=== PATIENT | male | born 1960 | race Caucasian/White ===

== ENCOUNTER 2021-03-19 18:13 | Emergency (ER) | payer BC, MEDICAID, SELFPAY ==
[2021-03-19 18:22] VITALS: BP 139/90; PULSE 72; RESP 16; TEMP 35.8; O2SAT 98; BMI 33.8
--- NOTE | 2021-03-19 18:22 | XRR_ITS ---
PROCEDURE INFORMATION: Exam: XR Chest Exam date and time: 03/19/2021 6:22 PM Age: 60 years old Clinical indication: Shortness of breath; Additional info: SOB TECHNIQUE: Imaging protocol: XR of the chest. Views: 1 view. COMPARISON: No relevant prior studies available. FINDINGS: Tubes, catheters and devices: AICD/pacer device noted in the left chest wall. Lungs: Unremarkable. No consolidation. Pleural spaces: Unremarkable. No pleural effusion. No pneumothorax. Heart/Mediastinum: No cardiomegaly. Moderate-sized hiatal hernia. Bones/joints: Unremarkable. XR/XR chest 1V portable [id number] IMPRESSION: 1. No acute findings. 2. Moderate-sized hiatal hernia.
--- NOTE | 2021-03-19 18:38 | PC.NURSE ---
EKG GIVEN TO DR. SIERRA
--- NOTE | 2021-03-19 18:47 | ECG_ITS ---
[facility] Test Date: 2021-03-19 Pat Name: Adebayo Serra Department: Room: Gender: Male Improvement Coordinator: : 1960 Requested By: Kaity Eaton Order Number: [id number] Kayla MD: Ellie Obrien M.D. Measurements Intervals [place] Rate: 64 P: -3 UT: 178 QRS: 19 QRSD: 128 T: -12 QT: 420 QTc: 435 Interpretive Statements SINUS RHYTHM MINIMAL VOLTAGE CRITERIA FOR LVH, CONSIDER NORMAL VARIANT [MEETS CRITERIA IN ONE OF: R(aVL), S(V1), R(V5), R(V5/V6)+S(V1)] ANTEROLATERAL MYOCARDIAL INFARCTION , OF INDETERMINATE AGE [40+ ms Q WAVE IN I/aVL/V3-V6] No previous ECG available for comparison Electronically Signed On 03-19-2021 20:19:41 FOAM FABRICATOR by Ellie Obrien M.D. [id number]
[2021-03-19 19:06] LABS: SARS Covid-2 Antigen Negative (Negative)
--- NOTE | 2021-03-19 19:48 | ED_ITS ---
HPI - COVID General: Chief Complaint: COVID symptoms Stated Complaint: Covid Symptoms Time Seen by Provider: 03/19/21 19:10 Triage information: Has fever, cough or shortness of breath . No known COVID + exposure last 14 days History of Present Illness: HPI Narrative: Patient states he had a cough, sore throat and drainage last couple days Prior covid testing: no COVID 19 common symptoms: positive non-productive cough, throat pain and nasal congestion; negative fever(s), chills, body aches, headache(s), nausea or vomiting COVID 19 other sytmptoms: negative chest pain Severity: mild Pertinent comorbid conditions: hypertension Treatment prior to arrival: none COVID Results: SARS-CoV-2 Antigen (Rapid) Negative (Negative) 03/19/21 18:42 03/19/21 Review of Systems Const: Denies: fever(s), chills or body aches Eyes: Denies: change in vision or blurry vision ENMT: Reports: throat pain and nasal congestion Card: Denies: chest pain or dyspnea on exertion Resp: Reports: non-productive cough GI: Denies: abdominal pain, nausea or vomiting : Denies: difficulty urinating Musc: Denies: extremity pain Skin/Breast: Denies: rash Neuro: Denies: headache(s) Psych: Denies: anxiety or depression Kraig/Lymph: Denies: easy bruising Physical Exam Const: COMMON NORMALS: no acute distress, average body habitus and patient oriented x3 HENMT: COMMON NORMALS: normocephalic HEAD & SCALP: normal to inspection and normocephalic FACE & SINUS: normal facial exam NOSE: Nasal discharge present clear Eye: COMMON NORMALS: conjunctivae normal GENERAL EYE: appearance normal, both eyes and all related structures CONJUNCTIVA: Yes conjunctivae normal Neck/C-Spine: COMMON NORMALS: no JVD Chest: COMMONS NORMALS: normal inspection of the chest Resp: COMMON NORMALS: normal respiratory effort and clear to auscultation bilaterally AUSCULTATION: clear to auscultation bilaterally Cardio: COMMON NORMALS: no JVD, regular rate and regular rhythm RATE: regular rate RHYTHM: regular rhythm GI: COMMON NORMALS: Normal to inspection, nondistended, normoactive bowel sounds present Extremity: COMMON NORMALS: normal to inspection and full ROM Neuro: COMMON NORMALS: patient oriented x3 Course Vital Signs: Vital signs: Vital Signs Temperature 96.5 F L 03/19/21 18:22 Pulse Rate 72 03/19/21 18:22 Respiratory Rate 16 03/19/21 18:22 Blood Pressure 139/90 03/19/21 18:22 Pulse Oximetry 98 03/19/21 18:22 MDM - COVID MDM Narrative: Medical decision making narrative: Patient presents with nasal drainage, cough, congestion. Does have a dry cough. Patient's not had a f ever. Patient denies any chest pain or shortness of breath. Has not been taking [id number] medicine. Patient is a smoker. Patient encouraged take medication as directed, quit smoking, follow-up primary care provider. Lab Data: Labs: Lab Results 03/19/21 18:42 SARS-CoV-2 Ag (Rap id) Negative (Negative) COVID Results: SARS-CoV-2 Antigen (Rapid) Negative (Negative) 03/19/21 18:42 03/19/21 Discharge Plan Discharge Patient Disposition: Home Clinical Impression: Bronchitis Condition: Stable Prescriptions: New Zithromax Z-Jaime 250 mg tablet See Rx Instructions .ROUTE .COMPLEX Qty: 6 RF: 0 Decadron 6 mg tablet 6 mg PO DAILY Qty: 7 RF: 0 Tessalon Perles 100 mg capsule 100 mg PO TID PRN (Reason: cough) Qty: 14 RF: 0 Discharge Orders: Discharge ED (Routine); Ordered 03/19/21 Ordered By: Devyn Knox Discharge Diet: Usual diet Discharge Activity: Increase activity as tolerated Patient Instructions: Acute Bronchitis (ED) Activity Restrictions/Additional Instructions: Follow-up with medical provider as directed. Take medications as prescribed. Return to the ER or your medical provider if condition worsens. Please read and understand discharge instructions. If any questions ask please. Cut back on smoking. 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
[2021-03-19 20:11] VITALS: PULSE 93; RESP 20; O2SAT 97
== END 2021-03-19 20:11 | disposition home or self-care (01) ==
PROVIDERS: Emergency Medicine; Emergency Provider Nurse Practitioner Family
DX: J40 Bronchitis, not specified as acute or chronic (principal); Z20.822 Contact with and (suspected) exposure to COVID-19
CPT/HCPCS: 71045; 87426; 93005; 99283